=== PATIENT | female | born 2000 | race African-American/Black ===

== ENCOUNTER 2021-08-18 17:41 | Emergency (ER) | payer MEDICAID ==
[~2021-08-18] VITALS: Ht 167.6 cm; Wt 129.3 kg
[2021-08-18 18:14] VITALS: BP 160/89
[2021-08-18] MEDS ORDERED: KETOROLAC 30 MG/ML VIAL IM ONE (19:55)
[2021-08-18] MEDS ORDERED: ACET-8386 PO (20:09)
[2021-08-18 20:59] VITALS: BP 160/89
--- NOTE | 2021-08-18 21:24 | NUR ---
Patient discharged with v/s stable. Written and verbal after care instructions given and explained. Patient verbalized understanding. Ambulatory with steady gait. All questions addressed prior to discharge. Advised to follow up with PMD.
== END 2021-08-18 21:24 | disposition home or self-care (01) ==
LOC: MED 17:41
DX: S82.841A Displaced bimalleolar fracture of right lower leg, initial encounter for closed fracture (principal); I10 Essential (primary) hypertension; X58.XXXA Exposure to other specified factors, initial encounter; Y93.89 Activity, other specified; Y92.830 Public park as the place of occurrence of the external cause; Y99.8 Other external cause status
CPT/HCPCS: 29515; 73610; 73630; 96372; 99284; J1885